=== PATIENT | female | born 1955 | race Caucasian/White ===

== ENCOUNTER 2024-11-08 10:21 | Emergency (ER) | payer MEDICARE, OTHER, SELFPAY ==
[2024-11-08 10:24] VITALS: BP 195/111; PULSE 90; TEMP 36.7; O2SAT 98; BMI 32.8
--- NOTE | 2024-11-08 10:37 | ECG_ITS ---
[facility] Test Date: 2024-11-08 Pat Name: ROSALINA JUAREZ Department: Room: - Gender: Female [employer] Support [employer]: : 1955 Requested By: [id number] Order Number: [id number] Reading MD: MARIANGEL MICHAUD M.D. Measurements Intervals [place] Rate: 81 P: 30 [place]: 180 QRS: 72 QRSD: 72 T: 65 QT: 368 QTc: 405 Interpretive Statements 1100 Sinus rhythm 8102 Low QRS voltage in chest leads 9120 atypical ECG No previous ECG available for comparison Electronically Signed On 11-08-2024 19:59:47 EDT by MARIANGEL MICHAUD M.D.
--- NOTE | 2024-11-08 10:38 | ED.GENADUL1 ---
HPI HPI - General Adult General Chief complaint: Abdominal Pain Stated complaint: ABDOMINAL PAIN Time Seen by Provider: 11/08/24 10:25 Source: patient Mode of arrival: walk-in History of Present Illness HPI narrative: 69-year-old female presents to the emergency department for abdominal pain. It is in the right upper quadrant and epigastric area and she has had it on and off for 5 months. She is worried about her gallbladder exploding. She was told from an ultrasound that she has gallstones. No trauma or fever or vomiting. The pain is moderate and intermittent. Related Data Previous Rx's ?Medication ?Instructions ?Recorded esomeprazole magnesium 20 mg 20 mg PO DAILY #20 caps 11/08/24 capsule,delayed release (Nexium) Allergies Allergy/AdvReac Type Severity Reaction Status Date / Time No Known Drug Allergies Allergy Verified 11/08/24 10:31 Opioid HPI Opioid Management Most Recent Opioid Data: No Data to Display Review of Systems ROS Narrative A ten point review of systems is negative except as noted above. [facility] Medical History (Updated 11/08/24 @ 13:21 by Loy Ya MD) Pre-diabetes ?R73.03 - Prediabetes (ICD-10) Fatty liver ?K76.0 - Fatty (change of) liver, not elsewhere classified (ICD-10) Gallbladder stone with nonacute cholecystitis ?K80.10 - Calculus of gallbladder with chronic cholecystitis without obstruction (ICD-10) HTN (hypertension) ?I10 - Essential (primary) hypertension (ICD-10) Social History Little interest or pleasure in doing things: not at all Feeling down, depressed, or hopeless: not at all Exam Narrative Exam Narrative: Nurses note and vital signs reviewed and patient is not hypoxic. General: The patient appears well and in no apparent distress. Patient is resting comfortably on cart. Skin: Warm, dry, no pallor noted. There is no rash noted. Head: Normocephalic, atraumatic Eye: Normal conjunctiva, no drainage Ears, Nose, Mouth, and Throat: oral mucosa is moist. Nares patent. Cardiovascular: Regular Rate and Rhythm Respiratory: Patient is in no distress, no accessory muscle use, lungs are clear to auscultation, no wheezing, rales or rhonchi Back: non-tender, no CVA tenderness bilaterally to percussion. GI: Mild tenderness in the right upper quadrant and epigastric areas only. No tenderness elsewhere. No masses. Musculoskeletal: The patient has no evidence of calf tenderness, no pitting edema, symmetrical pulses noted bilaterally Neurological: A&O, normal speech Psychiatric: Cooperative Constitutional Vital Signs, click to edit/add: Last Vital Signs Temp 98.1 F 11/08/24 10:24 Pulse 90 11/08/24 10:24 Resp 16 11/08/24 10:24 BP 178/100 H 11/08/24 12:05 Pulse Ox 98 11/08/24 10:24 O2 Del Method Room Air 11/08/24 10:24 Course Vital Signs Vital signs: Vital Signs Temperature 98.1 F 11/08/24 10:24 Pulse Rate 90 11/08/24 10:24 Respiratory Rate 16 11/08/24 10:24 Blood Pressure 195/111 H 11/08/24 10:24 Pulse Oximetry 98 11/08/24 10:24 Oxygen Delivery Method Room Air 11/08/24 10:24 Temperature 98.1 F 11/08/24 10:24 Pulse Rate 90 11/08/24 10:24 Respiratory Rate 16 11/08/24 10:24 Blood Pressure 178/100 H 11/08/24 12:05 Pulse Oximetry 98 11/08/24 10:24 Oxygen Delivery Method Room Air 11/08/24 10:24 Medical Decision Making MDM Narrative Medical decision making narrative: Gallbladder ultrasound does not show gallstones and shows hepatomegaly with hepatic steatosis. CT of the abdomen shows no acute process and confirms hepatomegaly with hepatic steatosis. She is placed on Nexium and will follow-up with her doctor. Treatment diagnosis and follow-up were discussed with the patient. Differential Diagnosis Differential Diagnosis: Gallbladder disease, duodenitis, colitis, pancreatitis, hepatitis Lab Data Lab results reviewed: Yes I reviewed the patient's lab results Labs: Lab Results 11/08/24 Range/Units 10:45 WBC 8.7 (4.0-11.0) 10^3/uL RBC 5.12 (4.20-5.40) 10^6/uL Hgb 15.6 (12.0-16.0) g/dL Hct 45.5 (36.0-48.0) % MCV 88.9 (81.0-99.0) fL MCH 30.5 (26.7-34.0) pg MCHC 34.3 (29.9-35.2) g/dL RDW 13.0 (11.0-15.0) % Plt Count 251 (150-450) 10^3/uL MPV 9.7 (9.5-13.5) fL Neut % (Auto) 68.9 (43.0-75.0) % Lymph % (Auto) 21.1 (20.5-60.0) % [place] % (Auto) 6.2 (1.7-12.0) % Eos % (Auto) 2.1 (0.9-7.0) % Baso % (Auto) 1.4 (0.2-2.0) % Neut # (Auto) 6.0 (1.4-6.5) 10^3/uL Lymph # (Auto) 1.8 (1.2-3.8) 10^3/uL [place] # (Auto) 0.5 (0.3-0.8) 10^3/uL Eos # (Auto) 0.2 (0.0-0.7) 10^3/uL Baso # (Auto) 0.1 (0.0-0.1) 10^3/uL Abs Immat Gran (auto) 0.03 (0.00-0.03) 10^3/uL Imm/Tot Granulo (auto) 0.3 (0.0-0.5) % Sodium 136 (136-145) mmol/L Potassium 3.9 (3.5-5.1) mmol/L Chloride 101 (98-107) mmol/L Carbon Dioxide 29.4 (21.0-32.0) mmol/L Anion Gap 9.5 BUN 15.0 (7.0-18.0) mg/dL Creatinine 0.89 (0.55-1.02) mg/dL Est GFR ( Amer) >60 (>=60 mL/min/1.73m^2) Est GFR (Non-Af Amer) >60 (>=60 mL/min/1.73m^2) BUN/Creatinine Ratio 16.9 Glucose 193 H (74-106) mg/dL Calcium 9.0 (8.5-10.1) mg/dL Total Bilirubin 0.3 (0.2-1.0) mg/dL Direct Bilirubin 0.1 (0.0-0.2) mg/dL AST 21 (15-37) U/L ALT 31 (14-59) U/L Alkaline Phosphatase 117 H (46-116) U/L Total Protein 7.3 (6.4-8.2) g/dL Albumin 3.5 (3.4-5.0) g/dL Globulin 3.8 g/dL Albumin/Globulin Ratio 0.9 Amylase 69 (25-115) U/L Lipase 83.0 H (16.0-77.0) U/L Imaging Data Gallbladder ultrasound, CT abdomen: Radiologist's impression: Gallbladder ultrasound: Hepatomegaly with hepatic steatosis CT abdomen: No acute process, hepatomegaly with hepatic steatosis ECG Data Attestation: I personally reviewed and interpreted this ECG as follows: (EKG on my interpretation shows normal sinus rhythm with rate of 81 and no acute change) Discharge Plan Discharge Chief Complaint: Abdominal Pain Clinical Impression: Abdominal pain Patient Disposition: Home, Self-Care Time of Disposition Decision: 13:21 Condition: Good Mode of Transportation: Private Vehicle Prescriptions / Home Meds: New esomeprazole magnesium [Nexium] 20 mg capsule,delayed release(DR/EC) 20 mg PO DAILY Qty: 20 0RF Print Language: Thai Instructions: Abdominal Pain (ED) Referrals: RONALD WILSON [Primary Care Provider] - 1 week
[2024-11-08 10:54] LABS: Basophils Absolute Auto 0.1 10^3/uL (0.0-0.1); Basophils Percent Auto 1.4 % (0.2-2.0); Eosinophils Absolute Auto 0.2 10^3/uL (0.0-0.7); Eosinophils Percent Auto 2.1 % (0.9-7.0); Hematocrit 45.5 % (36.0-48.0); Hemoglobin 15.6 g/dL (12.0-16.0); Immature Granulocytes Abs Auto 0.03 10^3/uL (0.00-0.03); Immature Granulocytes Pct Auto 0.3 % (0.0-0.5); Lymphocytes Absolute Auto 1.8 10^3/uL (1.2-3.8); Lymphocytes Percent Auto 21.1 % (20.5-60.0); Mean Corpuscular HGB Conc 34.3 g/dL (29.9-35.2); Mean Corpuscular Hemoglobin 30.5 pg (26.7-34.0); Mean Corpuscular Volume 88.9 fL (81.0-99.0); Mean Platelet Volume 9.7 fL (9.5-13.5); Monocytes Absolute Auto 0.5 10^3/uL (0.3-0.8); Monocytes Percent Auto 6.2 % (1.7-12.0); Neutrophils Percent Auto 68.9 % (43.0-75.0); Platelet Count 251 10^3/uL (150-450); Red Blood Count 5.12 10^6/uL (4.20-5.40); White Blood Count 8.7 10^3/uL (4.0-11.0)
[2024-11-08 11:05] LABS: Alanine Aminotransferase 31 U/L (14-59); Albumin Globulin Ratio 0.9; Albumin Level 3.5 g/dL (3.4-5.0); Alkaline Phosphatase 117 U/L (46-116); Amylase 69 U/L (25-115); Anion Gap 9.5; Aspartate Amino Transferase 21 U/L (15-37); BUN Creatinine Ratio 16.9; Bilirubin Direct 0.1 mg/dL (0.0-0.2); Bilirubin Total 0.3 mg/dL (0.2-1.0); Carbon Dioxide 29.4 mmol/L (21.0-32.0); Chloride 101 mmol/L (98-107); Estimated GFR (African America >60 (>=60 mL/min/1.73m^2); Estimated GFR (Non-African Ame >60 (>=60 mL/min/1.73m^2); Globulin 3.8 g/dL; Glucose 193 mg/dL (74-106); Potassium 3.9 mmol/L (3.5-5.1); Sodium 136 mmol/L (136-145); Total Protein 7.3 g/dL (6.4-8.2)
[2024-11-08 12:05] VITALS: BP 178/100
[2024-11-08 13:39] VITALS: BP 198/97
== END 2024-11-08 13:41 | disposition home or self-care (01) ==
PROVIDERS: Emergency Provider Emergency Medicine; PCP Internal Medicine
DX: R10.11 Right upper quadrant pain (principal); R16.0 Hepatomegaly, not elsewhere classified; K76.0 Fatty (change of) liver, not elsewhere classified
CPT/HCPCS: 36415; 74177; 76705; 80048; 80076; 82150; 83690; 85025; 93005; 99285; Q9967